=== PATIENT | male | born 1970 | race Caucasian/White ===

== ENCOUNTER 2017-04-30 09:33 | Emergency (ER) | payer BC ==
[2017-04-30 10:05] VITALS: BP 126/84
--- NOTE | 2017-04-30 10:05 | UC ---
Skin Complaint HPI - HPI Summary HPI Summary: right lower leg small scab that started about 3weeks ago. It is raised and itchy at times and then wiley at times. He never saw a tick or insect but wonders if this could be an insect bite. No fever, chills, or flu like ilness. There may have been some central clearing. Nothing makes it better or worse. - History of Current Complaint Chief Complaint: UCSkin Time Seen by Provider: 04/30/17 09:49 Stated Complaint: REFILL/RECHECK Hx Obtained From: Patient Onset/Duration: Gradual Onset, Lasting Weeks Skin Exposure Onset/Duration: Weeks Ago Timing: Constant Onset Severity: Mild Current Severity: Mild Location: Discrete Aggravating Factor(s): Nothing Alleviating Factor(s): Nothing Associated Signs & Symptoms: Negative: Nausea, Vomiting, Numbness, Diaphoresis, Weakness, Pallor, Shivering, Fever, Chills, Cough, Wheezing, Abdominal Pain, Drainage, Bruising - Allergy/Home Medications Allergies/Adverse Reactions: Allergies Allergy/AdvReac Type Severity Reaction Status Date / Time No Known Allergies Allergy Verified 04/30/17 09:44 Review of Systems Skin: Rash All Other Systems Reviewed And Are Negative: Yes PMH/Surg Hx/FS Hx/Imm Hx Previously Healthy: Yes - Surgical History Surgical History: None - Family History Known Family History: Positive: Other - No related skin family history. - Social History Alcohol Use: Occasionally Substance Use Type: None Smoking Status (MU): Heavy Every Day Tobacco Smoker Type: Cigarettes - Immunization History Most Recent Influenza Vaccination: not current Physical Exam Triage Information Reviewed: Yes Appearance: Well-Appearing, No Pain Distress, Well-Nourished Vital Signs: Initial Vital Signs Temp 98.4 F 04/30/17 09:38 Pulse 72 04/30/17 09:38 Resp 18 04/30/17 09:38 BP 126/84 04/30/17 09:38 Pulse Ox 99 04/30/17 09:38 Vital Signs Reviewed: Yes Eye Exam: Normal Eyes: Positive: Conjunctiva Clear ENT: Positive: Normal ENT inspection Neck: Positive: Supple, Nontender, No Lymphadenopathy. Negative: Nuchal Rigidity Respiratory: Positive: Chest non-tender, Lungs clear, Normal breath sounds, No respiratory distress, No accessory muscle use. Negative: Respiratory distress, Decreased breath sounds, Accessory muscle use, Crackles, Rhonchi, Stridor, Wheezing Cardiovascular: Positive: RRR, No Murmur, Pulses Normal, Brisk Capillary Refill Abdomen Description: Positive: Nontender, No Organomegaly. Negative: Distended , Guarding Musculoskeletal: Positive: Strength Intact, ROM Intact, No Edema Neurological: Positive: Alert, Muscle Tone Normal. Negative: Fatigued Psychological Exam: Normal Skin Exam: Other - right lower leg small pink spot about 2.5mc with a central round 1cm raised area that is firm but not indurated or fluctuant. No guarding or obvious significant tenderness. Course/Dx - Course Course Of Treatment: Possible insect bite. No signs of cellulitis. We will start antibiotics and steroid ointment. He will return for lymes disease titers in 2-3 weeks. - Diagnoses Provider Diagnoses: rash. insect bite. Discharge - Discharge Plan Condition: Good Disposition: HOME Prescriptions: DOXYcycline CAP(*) [DOXYcycline 100MG CAP(*)] 100 mg PO BID #20 cap Triamcinolone 0.5% OINT * 1 applic TOPICAL BID #1 tube Patient Education Materials: Insect Bite or Sting (ED) Referrals: Non Staff,Doctor [Primary Care Provider] - Additional Instructions: return here for lyme disease testing in about 2-3 weeks.
== END 2017-04-30 10:08 | disposition home or self-care (01) ==
LOC: UCCORT 09:33
DX: R21 Rash and other nonspecific skin eruption (principal); S80.861A Insect bite (nonvenomous), right lower leg, initial encounter; W57.XXXA Bitten or stung by nonvenomous insect and other nonvenomous arthropods, initial encounter; Y92.9 Unspecified place or not applicable
CPT/HCPCS: 99201; G0463